=== PATIENT | female | born 1995 | race Caucasian/White ===

== ENCOUNTER 2025-05-07 01:26 | Emergency (ER) | payer OTHER ==
[~2025-05-07] VITALS: Ht 149.9 cm; Wt 40.8 kg
[2025-05-07] MEDS ORDERED: CEPH500T PO (02:00)
[2025-05-07] MEDS ORDERED: SULF1TAB48 PO (02:00)
[2025-05-07] MEDS ORDERED: LIDOCAINE HCL 1% 20 ML VIAL ONE (02:01)
[2025-05-07] MEDS ORDERED: CEFTRIAXONE 1 G VIAL ONE (02:01)
[2025-05-07] MEDS ORDERED: SODIUM BICARBONATE 4.2 % (NEUT) 5 ML VIAL ONE (02:01)
[2025-05-07] MEDS ORDERED: LIDOCAINE 2%-EPI 1:100,000 20 ML VIAL ONE (02:02)
[2025-05-07] MEDS ORDERED: SULFAMETH/TRIMETH 800/160 MG TABLET ONE (02:02)
[2025-05-07] MEDS: LIDOCAINE 2%-EPI 1:100,000 20 ML VIAL IJ ONE (02:11)
[2025-05-07] MEDS: SULFAMETH/TRIMETH 800/160 MG TABLET PO ONE (02:11)
[2025-05-07] MEDS: SODIUM BICARBONATE 4.2 % (NEUT) 5 ML VIAL TP ONE (02:11)
[2025-05-07] MEDS: CEFTRIAXONE 1 G VIAL IM ONE (02:11)
[2025-05-07 03:10] VITALS: BP 96/65; TEMP 98; O2SAT 98
== END 2025-05-07 03:11 | disposition home or self-care (01) ==
LOC: ER 01:35
DX: O99.713 Diseases of the skin and subcutaneous tissue complicating pregnancy, third trimester (principal); L02.31 Cutaneous abscess of buttock; Z3A.32 32 weeks gestation of pregnancy
CPT/HCPCS: 99285; 10060; 76819; 96372; J0696; J3490 ×2; A4606; A4663

== ENCOUNTER 2025-05-13 19:40 | Emergency (ER) | payer OTHER ==
[~2025-05-13] VITALS: Ht 180.3 cm; Wt 40.8 kg
[~2025-05-13 19:40] MED LIST: CEPH500T PO; SULF1TAB48 PO
[2025-05-13 20:39] LABS: PLATELET COUNT (AUTO) 399 K/uL (179-408); RED BLOOD CELL COUNT(AUTO) 3.30 MIL/uL (3.63-4.92); RED CELL DISTRIBUTION WIDTH 13.9 % (12.3-17.7); WHITE BLOOD COUNT (AUTO) 5.8 K/uL (3.8-11.8)
[2025-05-13 20:46] LABS: CREATININE 0.6 mg/dL (0.6-1.3); SODIUM SERUM 137.0 mmol/L (136-145); UREA NITROGEN, BLOOD 7.0 mg/dL (7-18)
[2025-05-13 20:53] LABS: ASPARTATE AMINOTRANSFERASE 36.0 U/L (15-37); TOTAL PROTEIN, SERUM 6.5 g/dL (6.4-8.2)
[2025-05-13 21:16] LABS: PREGNANCY TEST SERUM QUAN 41651.0 miul/L (0-6)
[2025-05-13 21:32] VITALS: BP 110/66; O2SAT 98
== END 2025-05-13 21:03 | disposition left against medical advice (07) ==
LOC: ER 19:46
DX: Z76.0 Encounter for issue of repeat prescription (principal); Z53.21 Procedure and treatment not carried out due to patient leaving prior to being seen by health care provider
CPT/HCPCS: 85025; 87040; A4606; A4663